=== PATIENT | female | born 1955 | race Hispanic/Latino ===

== ENCOUNTER 2022-10-23 00:31 | Emergency (ER) | payer SELFPAY ==
[2022-10-23] MEDS ORDERED: Bupivacaine 0.5% 10 ML VIAL ONE (00:47)
[2022-10-23] MEDS ORDERED: HYDROcodone/Acetaminophen 10/325 mg Tablet ONE (00:49)
== END 2022-10-23 01:15 | disposition home or self-care (01) ==
LOC: BURERS 00:31
DX: K08.89 Other specified disorders of teeth and supporting structures (principal); I10 Essential (primary) hypertension
CPT/HCPCS: 99282; J3490